=== PATIENT | female | born 1995 | race Caucasian/White ===

== ENCOUNTER 2017-10-14 19:12 | Emergency (ER) | payer MEDICAID, OTHER ==
[~2017-10-14] VITALS: Ht 160 cm; Wt 54.0 kg
[2017-10-14 19:16] VITALS: Ht 160 cm; Wt 54.0 kg
[2017-10-14] MEDS ORDERED: METOCLOPRAMIDE 10 MG INJ IV ONE (20:00)
[2017-10-14] MEDS ORDERED: SOD CHLORIDE 0.9% 1,000 ML IV ONE (20:30)
[2017-10-14 20:40] LABS: BASOPHILS % 0.3 % (0.0-2.0); EOSINOPHILS % 0.3 % (0.0-7.0); HEMATOCRIT 34.3 % (37.0-47.0); HEMOGLOBIN 12.2 g/dl (12.0-16.0); LYMPHOCYTES % 17.1 % (15.0-51.0); MEAN CORPUSCULAR HEMOGLOBIN 31.1 pg (29.0-33.0); MEAN CORPUSCULAR HGB CONC 35.6 g/dl (32.0-37.0); MEAN CORPUSCULAR VOLUME 87.5 fl (82.0-101.0); MEAN PLATELET VOLUME 11.6 fl (7.4-10.4); MONOCYTE # 0.9 10^3/ul (0.3-0.9); MONOCYTES % 7.3 % (0.0-11.0); NEUTROPHIL # 8.9 10^3/ul (1.6-7.5); NEUTROPHILS % 74.7 % (39.0-77.0); PLATELET COUNT 220 10^3/UL (140-415); RED BLOOD COUNT 3.92 10^6/ul (4.20-5.40); WHITE BLOOD COUNT 11.9 10^3/ul (4.8-10.8)
[2017-10-14 20:45] LABS: ADD UMIC YES; UR ASCORBIC ACID 40 mg/dL (NEGATIVE); UR BILIRUBIN (Dip) NEGATIVE (NEGATIVE); UR BLOOD (Dip) NEGATIVE (NEGATIVE); UR CLARITY SLIGHTLY CLOUDY (CLEAR); UR COLOR YELLOW (YELLOW); UR GLUCOSE (Dip) NEGATIVE (NEGATIVE); UR KETONES (Dip) 2+ mg/dL (NEGATIVE); UR LEUKOCYTE ESTERASE (Dip) NEGATIVE Leu/ul (NEGATIVE); UR MUCUS MODERATE /HPF (NONE SEEN); UR NITRITE (Dip) POSITIVE (NEGATIVE); UR RBC 3 /HPF (0-5); UR SPECIFIC GRAVITY (Dip) 1.026 (1.003-1.030); UR TOTAL PROTEIN (Dip) NEGATIVE (NEGATIVE); UR UROBILINOGEN (Dip) NEGATIVE (NEGATIVE)
--- NOTE | 2017-10-14 21:07 | ERD ---
ER Documentation Chief Complaint Chief Complaint c/o abd pain with n/v x 2 days. HPI Otherwise healthy 22-year-old female who is is currently 10 weeks . Rated as 7/10. Patient is complaining of abdominal pain, nausea and vomiting 2 days. Has not taken any medications to relieve the symptoms. No similar symptoms in past. No sick contacts. Denies chest pain, shortness of breath, diarrhea, constipation, environmental triggers, or migrating pain. Denies pelvic pain, vaginal discharge, dysuria, hematuria, or vaginal bleeding. Patient has no other complaints and describes no other associated manifestations. Nursing notes have been reviewed and are consistent with history given. ROS All systems reviewed and are negative except as per history of present illness. Allergies Allergies: Coded Allergies: No Known Drug Allergies (Verified Allergy, 10/22/11) PMhx/Soc Medical and Surgical Hx: pt denies Medical Hx, pt denies Surgical Hx History of Surgery: No Anesthesia Reaction: No Hx Neurological Disorder: No Hx Respiratory Disorders: No Hx Cardiac Disorders: No Hx Psychiatric Problems: No Hx Miscellaneous Medical Probl: No Hx Alcohol Use: No Hx Substance Use: No Hx Tobacco Use: No Smoking Status: Never smoker Physical Exam Vitals Vital Signs Date Time Temp Pulse Resp B/P Pulse Ox O2 Delivery O2 Flow Rate FiO2 10/14/17 19:16 98.9 82 18 124/59 99 Physical Exam Const: Healthy-appearing. Well-nourished. Well-developed. No acute distress. Abd: Fundus not appreciated. Soft, non tender, non distended. No guarding, masses. Normal bowel sounds. No McBurney's point tenderness. No pelvic masses palpated. Head: Normocephalic, Atraumatic. Eyes: Non-injected; No scleral erythema, discharge or foreign body. EOMI and FARAZ bilaterally. Ears: Normal External Ears, EACs clear, TM normal bilaterally without erythema. Nose: Normal nose without discharge, septal deviation, or sinus tenderness. Oral: No oral edema visualized. Mucous membranes moist and pink. Neck: No cervical lymphadenopathy, masses or goiter palpated. Trachea midline. Supple ~ No meningismus. Pulm: Good air movement in upper and lower respiratory tracts. No dyspnea, stridor, tripoding or drooling. Clear to auscultation bilaterally. Cardio: Regular rate and rhythm; No murmurs, gallops or rubs auscultated. No JVD grossly observed. Radial and posterior tibial pulses 2+ bilaterally. No cyanosis. Capillary refill less than 2 seconds. MS: Normal motor strength, normal tone with gross examination. Skin: No petechiae or rashes. No ulcer, induration, jaundice. Good turgor. Back: No midline, flank or CVA tenderness. Ext: No cyanosis, edema or palpable cord. Normal movement of all extremities grossly observed. Neur: Awake, alert and oriented x3. Neurovascularly intact bilaterally. Psych: Normal Mood and Affect. Result Diagram: 10/14/172001 Results 24 hrs Laboratory Tests Test 10/14/17 20:02 White Blood Count 11.910^3/ul Red Blood Count 3.9210^6/ul Hemoglobin 12.2g/dl Hematocrit 34.3% Mean Corpuscular Volume 87.5fl Mean Corpuscular Hemoglobin 31.1pg Mean Corpuscular Hemoglobin Concent 35.6g/dl Red Cell Distribution Width 12.0% Platelet Count 50263^3/UL Mean Platelet Volume 11.6fl Neutrophils % 74.7% Lymphocytes % 17.1% Monocytes % 7.3% Eosinophils % 0.3% Basophils % 0.3% Nucleated Red Blood Cells % 0.0/100WBC Neutrophils # 8.910^3/ul Lymphocytes # 2.010^3/ul Monocytes # 0.910^3/ul Eosinophils # 0.010^3/ul Basophils # 0.010^3/ul Nucleated Red Blood Cells # 0.010^3/ul Urine Color YELLOW Urine Clarity SLIGHTLY CLOUDY Urine pH 6.0 Urine Specific [place] 1.026 Urine Ketones 2+mg/dL Urine Nitrite POSITIVEmg/dL Urine Bilirubin NEGATIVEmg/dL Urine Urobilinogen NEGATIVEmg/dL Urine Leukocyte Esterase NEGATIVELeu/ul Urine Microscopic RBC 3/HPF Urine Microscopic WBC 11/HPF Urine Mucus MODERATE/HPF Urine Hemoglobin NEGATIVEmg/dL Urine Glucose NEGATIVEmg/dL Urine Total Protein NEGATIVEmg/dl Current Medications Medications (Trade) Dose Ordered Sig/Trudy Route PRN Reason Start Time Stop Time Status Last Admin Dose Admin Metoclopramide HCl 10 mg 10 mg ONCE ONCE IV 10/14/17 20:00 10/14/17 20:01 DC 10/14/17 20:09 Sodium Chloride (NS) 1,000 ml @ 1,000 mls/hr Q1H ONCE IV 10/14/17 20:30 10/14/17 21:29 DC 10/14/17 20:11 Procedures/MDM Patient is being evaluated and worked up for lower abdominal pain, nausea and vomiting 2 days as described in the history and physical exam. My current differential diagnosis includes, but is not limited to, the following: pelvic inflammatory disease, nephrolithiasis, urinary tract infection, spontaneous , demise, and vaginitis, among others. Patient was given 1 L normal saline with adequate relief of symptoms. The workup included CBC, type and screen, quantitative beta-hCG, urinalysis, urine culture, and an US. Urinalysis was consistent with urinary tract infection showing positive nitrites and positive WBC. No CVA tenderness. No suspicion for pyelonephritis. Most likely diagnosis is cystitis.. The US was read by the radiologist and given the following impression: Single live intrauterine with the estimated gestational age of 9 weeks 5 days At this time, I have little suspicion for spontaneous , ectopic , placenta previa, or PPROM. I have spoke with the patient regarding their condition and future management. They have verbally responded that they understand their status and treatment plan. The patients vitals are stable, and their current condition is appropriate for discharge. The patient will be given discharge instructions with return precautions. 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 Return the the emergency department immediately if symptoms worsen or change. If you have any questions regarding medications, ask your pharmacist or us before you leave. If any adverse reactions occur while taking your medications, discontinue the treatment and return to the emergency department immediately. Take your medications as directed, and complete the entire course of treatment. SOILA PLEITEZ PA-C Oct 14, 2017 21:07
--- NOTE | 2017-10-14 21:13 | RADRPT ---
PROCEDURE: Ultrasound of the pelvis. CLINICAL INDICATION: Pain TECHNIQUE: Transabdominal ultrasound of the pelvis was performed. COMPARISON: There are no similar studies submitted for comparison. FINDINGS: LAST MENSTRUAL PERIOD: 08/04/2017 UTERUS and GESTATIONAL SAC Uterus: There is a single gestational sac within the fundus of the uterus. Mean gestational sac diameter: 3.9 cm; estimated gestational age 9 weeks 2 days. Yolk sac: Present [place]-rump length (CRL): 32.3 mm = 10 weeks 1 day. heart motion: 166 bpm Subchorionic hemorrhage: None. OVARIES Right ovary: 2.9 x 2.2 x 2.6 cm Findings: There is Doppler flow to the right ovary.There is no ovarian lesion or cyst. Left ovary: 4.1 x 1.8 x 3.4 cm Findings: There is Doppler flow to the left ovary.There is no ovarian lesion or cyst. Cul-de-sac: No free fluid. IMPRESSION: Single live intrauterine with the estimated gestational age of 9 weeks 5 days RPTAT: HIKT .Luis Felipe Baron MD, Date Time Electronically viewed and signed by .Luis Felipe Baron MD, on 10/14/2017 21:13 .T/
[2017-10-14] MEDS ORDERED: NITR-58 PO (21:49)
== END 2017-10-14 22:18 | disposition home or self-care (01) ==
LOC: FTE 19:12
DX: O23.41 Unspecified infection of urinary tract in pregnancy, first trimester (principal); R10.30 Lower abdominal pain, unspecified; R10.2 Pelvic and perineal pain; Z3A.09 9 weeks gestation of pregnancy
CPT/HCPCS: 36415; 76801; 81001; 84702; 85025; 86900; 86901; 96374; J2765; J7030; Z7502